=== PATIENT | male | born 1980 | race Caucasian/White ===

== ENCOUNTER 2021-04-28 11:21 | Emergency (ER) | payer OTHER ==
[~2021-04-28] VITALS: Ht 167.6 cm; Wt 99.8 kg
--- NOTE | ~2021-04-28 | EMS ---
[facility] [address] [place] [address] EMS Patient Care Report Name: JULI BRIGHT Room #: DEP NANCY Gallardo#: [id number] Admission: 04/28/21 Attend Phys: Discharge: 04/28/21 Date of : 78 Report #: [id number] THIS REPORT FOR: //name// Report Transmitted: 04/29/2021 15:10 EMS Care Summary [place], [place]/[facility] Incident [id number] @ 04/28/2021 10:56 Incident Location [address] [place], [place] [id number] Patient JULI BRIGHT Male, 40 Years 1980 Patient Address HOMELESS Patient History None Reported, Patient Allergies No known allergies, Patient Medications None Reported, Chief Complaint ABDOMINAL PAIN FROM ALCOHOL WITHDRAWAL Disposition Transported No Lights/[place] Dispatch Reason Sick Person Transported To [facility] Narrative SCENE: ON ARRIVAL PT FOUND SITTING UPRIGHT ON SIDEWALK AT INTERSECTION OF ADDRESS PROVIDED. PT IS AWAKE AND ALERT WITH A GCS OF 15. PT C/O ABDOMINAL PAIN AND REPORTS HE IS WITHSDRAWING FROM ALCOHOL. PT ASSISTED INTO EMS UNIT. AMBULANCE: VITALS MONITORED. NO CHANGES. [facility] [address] [place] [address] EMS Patient Care Report Name: JULI BRIGHT Room #: DEP NANCY Gallardo#: [id number] Admission: 04/28/21 Attend Phys: Discharge: 04/28/21 Date of : [birth year] Report #: [id number] Initial Vitals @11:05P: 121,R: 18,BP: 132/83,Pain: 0/10,GCS: 15,SpO2: 95,Revised Trauma: 12, @11:10P: 118,R: 18,BP: 136/78,Pain: 0/10,GCS: 15,Revised Trauma: 12, Assessments @11:05MENTAL:No Abnormalities,SKIN:No Abnormalities,HEENT:Head/Face: No Abnormalities,Eyes: No Abnormalities,Neck/Airway: No Abnormalities,LUNG SOUNDS:General: Other,ABDOMEN:General: Other,PELVIS//GI:No Abnormalities,EXTREMITIES:Left Arm: No Abnormalities,Right Arm: No Abnormalities,Left Leg: No Abnormalities,Right Leg: No Abnormalities,PULSE:NEURO:No Abnormalities,@11:10MENTAL:No Abnormalities,SKIN:No Abnormalities,HEENT:Head/Face: No Abnormalities,Eyes: No Abnormalities,Neck/Airway: No Abnormalities,LUNG SOUNDS:General: Other,ABDOMEN:General: Other,PELVIS//GI:No Abnormalities,EXTREMITIES:Left Arm: No Abnormalities,Right Arm: No Abnormalities,Left Leg: No Abnormalities,Right Leg: No Abnormalities,PULSE:NEURO:No Abnormalities, Impression Abdominal Pain Procedures @11:05ALS AssessmentResponse: UnchangedSucceeded Timeline 10:54,Call Received 10:54,Dispatch Notified 10:56,Dispatched 10:57,En Route 11:04,On Scene 11:04,At Patient 11:05,ALS Assessment,Response: UnchangedSucceeded, 11:05,BP: 132/83 M,PULSE: 121,RR: 18 R,SPO2: 95 Ox,ETCO2: ,BG: ,PAIN: 0,GCS: 15, 11:06,Depart Scene 11:10,BP: 136/78 M,PULSE: 118,RR: 18 R,SPO2: Ox,ETCO2: ,BG: ,PAIN: 0,GCS: 15, 11:17,At Destination 11:25,Call Closed Disclaimer v1.1 Copyright 2020 [employer] This EMS Care Summary contains data elements from the applicable legal record (which may be displayed differently). It is designed to provide pertinent information for the following purposes: continuity of care, clinical quality, and state data reporting. The complete legal record is available to ED staff and administrators of the receiving hospital in [employer]'s Patient Tracker. All data [facility] [address] [place] [address] EMS Patient Care Report Name: LAILANOMANJULI Room #: LEO Gallardo#: [id number] Admission: 04/28/21 Attend Phys: Discharge: 04/28/21 Date of : 78 Report #: [id number] is provided "as is."
[2021-04-28 12:05] LABS: ABSOLUTE NEUTROPHILS 4.6 thou/uL (1.4-8.2); BASOPHILS 1.2 % (0.0-2.0); HEMATOCRIT 36.4 % (42.0-52.0); HEMOGLOBIN 11.6 gm/dL (14.0-18.0); LYMPHOCYTES 21.2 % (24.0-44.0); MCH 25.2 pg (26.0-34.0); MCHC 31.9 g/dL (28.0-37.0); MCV 79.1 fL (80.0-100.0); MONOCYTES 8.4 % (1.0-8.0); PLATELET COUNT 293 thou/uL (150-400); POLYS 68.2 % (36.0-66.0); RDW 17.7 % (10.5-14.5); WBC 6.7 thou/uL (4.0-11.0)
[2021-04-28 12:16] LABS: CALCIUM 8.7 mg/dL (8.5-10.1)
[2021-04-28 12:22] LABS: ALBUMIN 3.4 g/dL (3.4-5.0); MAGNESIUM 2.1 mg/dL (1.8-2.4); TOTAL BILIRUBIN 0.7 mg/dL (0.2-1.0); TOTAL PROTEIN 7.1 g/dL (6.4-8.2)
[2021-04-28 12:54] LABS: AMP/METHAMP POSITIVE (Negative); BARBITURATES POSITIVE (Negative); BENZODIAZEPINES Negative (Negative); COCAINE Negative (Negative); METHADONE Negative (Negative); OPIATES Negative (Negative); PCP Negative (Negative)
[2021-04-28 13:19] VITALS: BP 132/70
== END 2021-04-28 13:27 | disposition home or self-care (01) ==
LOC: ER 11:21
PROVIDERS: Emergency Medicine
DX: F19.10 Other psychoactive substance abuse, uncomplicated (principal); Z88.8 Allergy status to other drugs, medicaments and biological substances